=== PATIENT | male | born 1980 | race Two or more races ===

== ENCOUNTER 2022-12-19 14:30 | Outpatient (CLI) | payer OTHER ==
[~2022-12-19] VITALS: Ht 172.7 cm; Wt 118.4 kg
[2022-12-19] MEDS ORDERED: AMLO-496 PO (15:32)
[2022-12-19] MEDS ORDERED: TAMS0.4C36 PO (15:32)
[2022-12-19] MEDS ORDERED: POM (16:06)
== END 2022-12-19 14:46 | disposition home or self-care (01) ==
LOC: LAB 14:30 → EDSTATUS 12-21 13:25
PROVIDERS: ATTEND Internal Medicine Cardiovascular Disease
DX: U07.1 COVID-19 (principal)

== ENCOUNTER 2023-03-13 07:17 | Day surgery (SDC) | payer MEDICAID, OTHER ==
[~2023-03-13] VITALS: Ht 172.7 cm; Wt 117.5 kg
[~2023-03-13 07:17] MED LIST: AMLO-496 PO; ATOR20TA PO; CARI-277 PO; HYDR-4798 PO; METF-370 PO; TAMS0.4C36 PO
[2023-03-13] MEDS ORDERED: ANGIOMAX 250 MG VIAL IV ONE (07:43)
[2023-03-13] MEDS ORDERED: fentaNYL CITRATE 100 MCG/2 ML VL ONE (07:43)
[2023-03-13] MEDS ORDERED: VERAPAMIL 2.5MG/ML INJ 2ML VIAL IV ONE (07:43)
[2023-03-13] MEDS ORDERED: HEPARIN SODIUM (PORCINE) 5000 UNITS/ML 1ML VIAL ONE (07:43)
[2023-03-13] MEDS ORDERED: IODIXANOL 320MG/ML 100ML BTL IV ONE ×2 (07:44→08:00)
[2023-03-13] MEDS ORDERED: LIDOCAINE 2%HCL (LOCAL ANESTH.) INJ 10ml MDV ONE (07:44)
[2023-03-13] MEDS ORDERED: SODIUM CHL 0.9% 0 ML ONE (07:44)
[2023-03-13] MEDS ORDERED: MIDAZOLAM HCL 2MG/2ML 2ml VIAL (1mg/ml) ONE (07:44)
== END 2023-03-13 10:44 | disposition home or self-care (01) ==
LOC: CATH 07:17
PROVIDERS: ATTEND Internal Medicine Cardiovascular Disease
DX: I25.10 Atherosclerotic heart disease of native coronary artery without angina pectoris (principal); I10 Essential (primary) hypertension; E78.5 Hyperlipidemia, unspecified; E11.9 Type 2 diabetes mellitus without complications; E66.01 Morbid (severe) obesity due to excess calories; F17.200 Nicotine dependence, unspecified, uncomplicated; J45.909 Unspecified asthma, uncomplicated; Z79.899 Other long term (current) drug therapy; Z79.84 Long term (current) use of oral hypoglycemic drugs; Z98.890 Other specified postprocedural states
CPT/HCPCS: 76937; 93458; C1769; J1644; J2001; J2250; J3010; J7030; Q9967; 99152; 99153